=== PATIENT | male | born 1995 | race Hispanic/Latino ===

== ENCOUNTER 2023-06-12 18:19 | Emergency (ER) | payer SELFPAY ==
[2023-06-12 20:15] VITALS: BP 118/74
[2023-06-12 22:06] VITALS: BP 118/74
== END 2023-06-12 22:06 | disposition home or self-care (01) | DRG 605 ==
LOC: ED 18:19
PROC: 0HQFXZZ Repair Right Hand Skin, External Approach (ICD-10-PCS; principal; 2023-06-12)
DX: S61.212A Laceration without foreign body of right middle finger without damage to nail, initial encounter (principal); W25.XXXA Contact with sharp glass, initial encounter; Y92.009 Unspecified place in unspecified non-institutional (private) residence as the place of occurrence of the external cause